=== PATIENT | female | born 1985 ===

== ENCOUNTER 2017-12-06 14:11 | Emergency (ER) | payer OTHER ==
[2017-12-06 15:33] VITALS: BMI 24.7
[2017-12-06 15:37] VITALS: TEMP 98.7; O2SAT 100
--- NOTE | 2017-12-06 16:09 | C.PDOC ---
History Of Present Illness 32 y/o female presents to the ER complaining of frontal headache which has been present for the past 3 days. Patient states that headache is associated with light sensitivity. Patient states that her eyes feel tired especially when she is using her cellphone and the monitor at her work. Patient states that she does have a hsitory of migraines but reports that her current symptoms feel different. Patient denies having any fever, neck pain, and visual changes. Time Seen by Provider: 12/06/17 16:08 Chief Complaint (Nursing): Headache History Per: Patient History/Exam Limitations: no limitations Onset/Duration Of Symptoms: Days Current Symptoms Are (Timing): Still Present Severity: Moderate Past Medical History Reviewed: Historical Data, Nursing Documentation, Vital Signs Vital Signs: Last Vital Signs Temp 98.7 F 12/06/17 15:33 Pulse 84 12/06/17 17:01 Resp 20 12/06/17 17:01 BP 113/75 12/06/17 17:01 Pulse Ox 100 12/06/17 19:56 - Medical History PMH: No Chronic Diseases Surgical History: No Surg Hx Family History: States: No Known Family Hx - Social History Hx Alcohol Use: Yes Hx Substance Use: No - Immunization History Hx Tetanus Toxoid Vaccination: No Hx Influenza Vaccination: No Hx Pneumococcal Vaccination: No Review Of Systems Except As Marked, All Systems Reviewed And Found Negative. Constitutional: Negative for: Fever, Chills Eyes: Negative for: Vision Change Musculoskeletal: Negative for: Neck Pain Neurological: Positive for: Headache Physical Exam - Physical Exam Appears: Non-toxic, No Acute Distress, Other (mildy uncomfortable, squinting) Skin: Normal Color, Warm Head: Atraumatic, Normacephalic Eye(s): bilateral: Normal Inspection, PERRL, EOMI Nose: Normal Oral Mucosa: Moist Neck: Supple Chest: Symmetrical Cardiovascular: Rhythm Regular Respiratory: Normal Breath Sounds, No Accessory Muscle Use, No Rales, No Rhonchi , No Wheezing Extremity: Normal ROM Neurological/Psych: Oriented x3, Normal Speech, Normal Cognition, Normal Cranial Nerves, Normal Motor, Normal Sensation ED Course And Treatment O2 Sat by Pulse Oximetry: 100 (RA) Pulse Ox Interpretation: Normal Progress Note: Patient given Fioricet for headache. Patient felt better and was discharged with prescription for Fioricet. Patient has been informed that she needs to follow up with an eye doctor within 1 week. Disposition Counseled Patient/Family Regarding: Diagnosis, Need For Followup, Rx Given - Disposition Referrals: Vikram Rdz MD [Staff Provider] - Shakir Velazquez MD [Staff Provider] - Disposition: HOME/ ROUTINE Disposition Time: 17:15 Condition: STABLE Additional Instructions: FOLLOW UP WITH EYE DOCTOR WITHIN 1 WEEK USE MEDICATIONS NEEDED FOR HEADACHE RETURN TO ER IF SYMPTOMS WORSEN Prescriptions: Acetaminophen/Butalbital/Caf [Fioricet] 1 tab PO Q6 PRN #20 tab PRN Reason: Headache Instructions: Ocular Migraine (ED) Forms: [employer] (Yi), Work Excuse Print Language: MONGOLIAN - POA Present On Arrival: None - Clinical Impression Clinical Impression: Headache, Photophobia - Scribe Statement The provider has reviewed the documentation as recorded by the Kevinibe Marcelino Bacon Provider Attestation: All medical record entries made by the Scribe were at my direction and personally dictated by me. I have reviewed the chart and agree that the record accurately reflects my personal performance of the history, physical exam, medical decision making, and the department course for this patient. I have also personally directed, reviewed, and agree with the discharge instructions and disposition.
[2017-12-06] MEDS ORDERED: Apap-Butalbital-Caffeine 325-50-40mg Tab PO STA (16:57)
[2017-12-06 17:03] VITALS: BP 113/75; PULSE 84; RESP 20
[2017-12-06] MEDS ORDERED: Apap-Butalbital-Caffeine 325-50-40mg Tab ONE (17:06)
== END 2017-12-06 17:12 | disposition home or self-care (01) ==
LOC: C.ER 14:11
DX: H53.149 Visual discomfort, unspecified (principal); R51 Headache

== ENCOUNTER 2018-05-26 20:33 | Emergency (ER) | payer OTHER ==
[2018-05-26 20:33] VITALS: BMI 24.7
--- NOTE | 2018-05-26 20:57 | C.PDOC ---
History Of Present Illness 32 year old female presents to the ER with a complaint of generalized weakness and headache that began today. Patient took an advil at 1400 with improvement of headache, however, states she feels a coldness to the hands and feet. When she got home today she took a shower at 1600 and an aspirin but had some chest discomfort and SOB. Denies nausea, vomiting, or diarrhea. She is not on any medications and does not have any medical problems. Patient notes she has been under a lot of stress lately due to work and school. Time Seen by Provider: 05/26/18 20:42 Chief Complaint (Nursing): Weakness/Neurological Deficit History Per: Patient History/Exam Limitations: no limitations Onset/Duration Of Symptoms: Hrs Current Symptoms Are (Timing): Still Present Seizure Or Post-ictal Symptoms: None Fall Associated With With Symptoms: No Recent travel outside of the [place]: No Past Medical History Reviewed: Historical Data, Nursing Documentation, Vital Signs Vital Signs: Last Vital Signs Temp 98.4 F 05/26/18 20:36 Pulse 89 05/26/18 20:36 Resp 16 05/26/18 20:36 BP 130/84 05/26/18 20:36 Pulse Ox 100 05/26/18 21:08 Family History: States: Unknown Family Hx - Social History Hx Alcohol Use: Yes Hx Substance Use: No - Immunization History Hx Tetanus Toxoid Vaccination: No Hx Influenza Vaccination: No Hx Pneumococcal Vaccination: No Review Of Systems Except As Marked, All Systems Reviewed And Found Negative. Constitutional: Positive for: Weakness Physical Exam - Physical Exam Appears: Non-toxic Skin: Normal Color, Warm, Dry Head: Atraumatic, Normacephalic Eye(s): bilateral: Normal Inspection Oral Mucosa: Moist Neck: Normal, Supple Chest: Symmetrical, No Tenderness Cardiovascular: Rhythm Regular Respiratory: Normal Breath Sounds, No Rales, No Rhonchi, No Wheezing Gastrointestinal/Abdominal: Soft, No Tenderness Back: No CVA Tenderness Extremity: Normal ROM (x4) Neurological/Psych: Oriented x3, Normal Speech ED Course And Treatment - Laboratory Results Result Diagrams: 05/26/18 21:23 05/26/18 21:23 ECG: Interpreted By Me, Viewed By Me ECG Rhythm: Sinus Rhythm ECG Interpretation: Normal Interpretation Of ECG: Normal axis, normal intervals, no ST/T wave abnormalities Rate From EC O2 Sat by Pulse Oximetry: 100 (Room air) Pulse Ox Interpretation: Normal Medical Decision Making Medical Decision Making: EKG, blood work, CXR, and urinalysis ordered. patient resting comfortably, states improvement. will discharge home to follow up with pmd within 2 days prel. reading of cxr - nad Disposition Counseled Patient/Family Regarding: Studies Performed, Diagnosis - Disposition Referrals: [facility] [Outside] Disposition: HOME/ ROUTINE Disposition Time: 22:41 Condition: IMPROVED Additional Instructions: follow up with your doctor within 2 days call to make an appointment rest return to ER if symptoms worsens or progress Instructions: Generalized Weakness (DC), Fatigue (DC), Weakness (ED) Forms: [employer] (Dutch), Gen Discharge Inst Mongolian, [employer] (Mongolian), Work Excuse - Clinical Impression Clinical Impression: Weakness, Fatigue - Scribe Statement The provider has reviewed the documentation as recorded by the Scribe Ras Haddad All medical record entries made by the Scribe were at my direction and personally dictated by me. I have reviewed the chart and agree that the record accurately reflects my personal performance of the history, physical exam, medical decision making, and the department course for this patient. I have also personally directed, reviewed, and agree with the discharge instructions and disposition.
[2018-05-26 21:27] LABS: BASO % 0.4 % (0.0-2.0); EOS % 0.5 % (0.0-4.0); HEMOGLOBIN 13.2 g/dL (11.0-16.0); LYMPH # 1.8 K/uL (1.0-4.3); LYMPH % 16.1 % (20.0-40.0); MEAN CELL VOLUME 79.4 fL (81.0-99.0); MEAN CORPUSCULAR HEMOGLOBIN 26.5 pg (27.0-31.0); MEAN CORPUSCULAR HGB CONC 33.3 g/dL (33.0-37.0); MEAN PLATELET VOLUME 7.6 fL (7.2-11.7); MONO # 0.3 K/uL (0.0-0.8); NEUT # 8.7 K/uL (1.8-7.0); RBC 4.98 Mil/uL (3.80-5.20); RED CELL DISTRIBUTION WIDTH 14.6 % (11.5-14.5); WHITE BLOOD COUNT 10.9 K/uL (4.8-10.8)
[2018-05-26 21:29] LABS: SQUAMOUS EPITHIAL 1 /hpf (0-5); URINE BILIRUBIN NEGATIVE (NEGATIVE); URINE BLOOD NEGATIVE (NEGATIVE); URINE CLARITY Clear (Clear); URINE COLOR Straw (YELLOW); URINE GLUCOSE (UA) NORMAL (Normal); URINE LEUKOCYTE ESTERASE NEG Leu/uL (Negative); URINE PROTEIN NEGATIVE (NEGATIVE); URINE UROBILINOGEN NORMAL mg/dL (0.2-1.0)
[2018-05-26 21:39] LABS: ALB/GLOB RATIO 1.4 (1.0-2.1); ALBUMIN 4.7 g/dL (3.5-5.0); ALT/SGPT 21 U/L (9-52); AST/SGOT 18 U/L (14-36); BLOOD UREA NITROGEN 9 mg/dL (7-17); CALCIUM 9.6 mg/dl (8.6-10.4); GFR AFRICAN-AMERICAN > 60; GFR NON-AFRICAN AMERICAN > 60
[2018-05-26 23:05] VITALS: BP 130/82; PULSE 80; RESP 20; TEMP 98.6
--- NOTE | 2018-05-27 09:16 | RAD ---
Chest x-ray two views History: Shortness of breath. Comparison: None available. Findings: No focal infiltrate or effusion. Heart size within normal limits. Impression: No focal infiltrate or effusion.
--- NOTE | 2018-05-27 17:52 | CARD ---
APPROVED REPORT Date of service: 05/26/2018 EKG Measurement Heart [id number] <Conclusion> Normal sinus rhythm Normal ECG
[2018-05-30 08:13] VITALS: O2SAT 100
== END 2018-05-26 23:02 | disposition home or self-care (01) ==
LOC: C.ER 20:33
DX: R53.1 Weakness (principal); R53.83 Other fatigue

== ENCOUNTER 2018-09-19 08:23 | Day surgery (SDC) | payer OTHER ==
[2018-09-19 08:51] VITALS: O2SAT 100
[2018-09-19] MEDS ORDERED: cefOXitin IV 2 gm in Dextrose 0 GM/0 ML BAG IVPB ONE (10:33)
[2018-09-19] MEDS ORDERED: Propofol 10 mg/ml Inj (20 ML) ONE (10:43)
[2018-09-19] MEDS ORDERED: Silver Nitrate Topical - Stick ONE (10:59)
--- NOTE | 2018-09-19 11:14 | PCM.SURG1 ---
Surgeon's Initial Post Op Note - Surgeon's Notes Surgeon: Dr. Kyle Die Maintenance Technician: None Type of Anesthesia: General LMA Anesthesia Administered By: Dr. Basilio Pre-Operative Diagnosis: 32 yo with menorrhagia, irregular menstrual cycle, failure of medical therapy, endometrial polyp Operative Findings: AV uterus 8-10 , endometrial polyp Post-Operative Diagnosis: same as above Operation Performed: Hysteroscopy Myosure D and C Specimen/Specimens Removed: EMC,ECC. POLYP Estimated Blood Loss: EBL {In ML}: 5 Blood Products Given: N/A Drains Used: No Drains Post-Op Condition: Good Date of Surgery/Procedure: 09/19/18 Time of Surgery/Procedure: 11:14
[2018-09-19] MEDS ORDERED: Lactated Ringer's 1,000 ML IV SCH (11:15)
[2018-09-19 12:18] VITALS: RESP 18
[2018-09-19 12:39] VITALS: BP 106/62; PULSE 81; TEMP 97.4
--- NOTE | 2018-09-19 17:10 | OP ---
PROCEDURE DATE: 09/19/2018 PREOPERATIVE DIAGNOSES: A 32-year-old female with history of endometrial polyp, menorrhagia, irregular menses, and failure of medical therapy. POSTOPERATIVE DIAGNOSES: A 32-year-old female with history of endometrial polyp, menorrhagia, irregular menses, and failure of medical therapy. PROCEDURES: Hysteroscopy, MyoSure, dilation and curettage. SURGEON: Dr. Kyle. TYPE OF ANESTHESIA: General LMA. ANESTHESIA ADMINISTERED BY: Dr. Basilio. FINDINGS: Anteverted uterus, approximately 8-10 weeks' gestation; noted to have an endometrium polyp. ESTIMATED BLOOD LOSS: 5 mL. INPUT AND OUTPUT: 100 mL. COMPLICATIONS: None. SPECIMEN: EMC, ECC, and endometrial polyp. DESCRIPTION OF PROCEDURE: The patient was informed of the risk factors, benefits and alternatives of the procedure. Risks factors included infection, bleeding, damage to the surrounding organs and tissues, complication from anesthesia and possible . After informed consent was obtained, she was then taken to the operating room, prepped and draped in normal sterile fashion, placed in a dorsal lithotomy position. A weighted speculum was placed into the vagina. The anterior lip of the cervix was grasped with a single-tooth tenaculum. The uterus was gently dilated to approximately 8 cm. Upon complete uterine dilation, the scope was then placed. A complete surveillance of the uterine cavity was then performed. An endometrial polyp was identified. The MyoSure device was utilized. Under direct visualization removed endometrial polyp, excellent hemostasis was noted. It was then submitted to pathology and upon completion, the scope was then removed and a fraction dilatation and curettage was then performed. EMC and ECC were submitted to pathology. The scope was reintroduced, making sure that there was no areas of perforation. Upon completion, all instruments were removed from the vagina. Instrument and lap counts were correct x2. The patient was then taken to the recovery room in stable condition. Instructed to followup in the office in approximately 2 weeks. Chitra Kyle MD
== END 2018-09-19 12:40 | disposition home or self-care (01) ==
LOC: C.SDS 08:23
PROVIDERS: ATTEND Obstetrics & Gynecology
DX: N84.0 Polyp of corpus uteri (principal); N92.0 Excessive and frequent menstruation with regular cycle
CPT/HCPCS: 36415; 58558; 86850; 86900; 88305; J2704